=== PATIENT | male | born 1970 | race Caucasian/White ===

== ENCOUNTER 2021-01-26 08:34 | Inpatient (IN) | payer MEDICARE, OTHER ==
[~2021-01-26] VITALS: Ht 167 cm; Wt 109.8 kg
[2021-01-26] MEDS ORDERED: NS IV 1000 ML 1,000 ML ONE (09:29)
[2021-01-26] MEDS ORDERED: NITRO DRIP 25000 MCG/D5W 250 ML IV ONE (09:29)
[2021-01-26] MEDS ORDERED: HEParin 1000 UNIT/ML (10ML VIAL) FOR BOLUS ONE (09:29)
[2021-01-26] MEDS ORDERED: MIDAZOLAM 5 MG/5 ML (VERSED) VIAL ONE (09:29)
[2021-01-26] MEDS ORDERED: fentaNYL INJECTION 100 MCG/2 ML AMP ONE ×2 (09:29→10:55)
[2021-01-26] MEDS ORDERED: HEParin (CATH LAB) 2,000 ML IV ONE (09:29)
[2021-01-26] MEDS ORDERED: LIDOCAINE 1% INJ 20 ML 20 ML VIAL ONE (09:29)
--- NOTE | 2021-01-26 09:31 | Cardiac Procedure Note-CS/ASA ---
Pre-Procedure Note Pre-Op Procedure Note H&P Reviewed The H&P was reviewed, patient examined and no changes noted. Date H&P Reviewed: Jan 26, 2021 Time H&P Reviewed: 09:00 Conscious Sedation Pre-Proced Time 09:00 ASA Score 3 For ASA 3 and 4: Consider anesthesia and medical clearance. Also, for patients with a history of failed moderate sedation consider anesthesia. Airway Lungs Heart ASA score ASA 1: a normal healthy patient ASA 2: a patient with a mild systemic disease (mid diabetes, controlled hypertension, obesity x ASA 3: a patient with a severe systemic disease that limits activity (angina, COPD, prior Myocardial infarction) ASA 4: a patient with an incapacitating disease that is a constant threat to life (CHF, renal failure) ASA 5: a moribund patient not expected to survive 24 hrs. (ruptured aneurysm) ASA 6: a declared brain- patient whose organs are being harvested. For emergent operations, add the letter E after the classification Mallampati Classification Grade 3 Sedation Plan Analgesia, Amnesia, Plan communicated to team members, Discussed options with patient/fam, Discussed risks with patient/fam The patient is an appropriate candidate to undergo the planned procedure, sedation, and anesthesia. The patient immediately re-assessed prior to indication. MARIO SOLIS MD Jan 26, 2021 9:31 am
--- NOTE | 2021-01-26 09:35 | Cardiology History & Physical ---
HPI-Cardiology Cardiology Consultation Date of Consultation 01/26/21 Date of Admission Time Seen by Provider: 09:00 Indication: chest pain HPI 50 years old gentleman with history of diabetes mellitus, hypertension hyperlipidemia, started to have chest pain around 5 a.m. was seen at [facility] emergency room, he was noted to have ST elevation myocardial infarction, transferred for emergency cardiac catheterization to our institution, on arrival he was still having mild chest discomfort, had mild back pain. Mild shortness of breath. He is an active smoker, no previous cardiac history PMH-Cardiology Other PMHx Discussed below Social History Patient Social History Marrital Status: Employed/Student: employed Smoking: Current every day smoker Family Hx Other Noncontributory ROS-Cardiology Review of Systems General: No Chills, No Night Sweats, No Fatigue, No Malaise, No Appetite HEENT: No Head Aches, No Visual Changes, No Eye Pain, No Ear Pain, No Dysphasia, No Sinus Congestion, No Post Nasal Drip, No Sore Throat Pulmonary: Dyspnea; No Cough, No Pleuritic Chest Pain Cardiovascular: Chest Pain; No: Palpitations, Orthopnea, Paroxysmal Noc. Dyspnea, Edema, Lt Headedness Gastrointestinal: No: Nausea, Vomiting, Abdominal Pain, Diarrhea, Constipation, Melena, Hematochezia Genitourinary: No Dysuria, No Frequency, No Incontinence, No Hematuria, No Retention Musculoskeletal: back pain; No: neck pain, shoulder pain, arm pain, hand pain, leg pain, foot pain Neurological: No: Weakness, Numbness, Incoordination, Change in speech, Confus ion, Seizures Home Medications & Allergies Home Medication List Reviewed: Yes Exam-Cardiology Exam General Appearance: Alert, Oriented X3, Cooperative, No Acute Distress HEENT: Atraumatic, PERRLA Respiratory: Clear to Auscultation, Normal Air Movement Cardiovascular: Regular Rate, Normal S1, Normal S2, No Murmurs Abdominal: Normal Bowel Sounds, Soft, No Tenderness, No Hepatosplenomegaly, No Masses Extremities: No Clubbing, No Cyanosis, No Edema, Normal Pulses, No Tenderness/Swelling Skin: No Rashes, No Breakdown, No Significant Lesion Neuro: Normal Gait, Normal Speech, Strength at 5/5 X4 Ext, Normal Tone, Sensation Intact Psych/Mental Status: Mental Status NL, Mood NL Results Labs Labs Reviewed from [facility] A/P-Cardiology Admission Diagnosis Acute ST elevation myocardial infarction Coronary artery disease Hypertension Hyperlipidemia Admission Status: Inpatient Order (span 2 midnights) Reason for Inpatient Admission: Acute ST elevation myocardial infarction Assessment/Plan Acute ST elevation myocardial infarction the anterior wall, patient was brought for emergency cardiac catheterization, underwent stenting to the LAD with excellent results. Has moderate disease in the circumflex and right coronary artery. Start on aspirin and Plavix. Monitor tolerance and response Coronary artery disease, status post emergency stenting to the LAD using 2.5 x 18 mm Lorna stent expanded to 2.7 mm with excellent results, moderate disease in the circumflex and right coronary artery Hypertension, was borderline hypotensive after receiving nitroglycerin, recovered fairly quickly, I will start him on ARB and beta blockers Hyperlipidemia, starting Lipitor 80 mg daily Diabetes mellitus, has been on metformin, educated on holding metformin Tobaccoism, educated on smoking cessation Obesity, educated on weight loss MARIO SOLIS MD Jan 26, 2021 9:35 am
--- NOTE | 2021-01-26 09:41 | Cardiac Cath Report ---
Cardiac Cath Report Physician (s)/Ebd Teacher (s) Physician MARIO SOLIS MD Pre-Procedure Diagnosis Pre-Procedure Diagnosis: acute ST elevation myocardial infarction Post-Procedure Note Name of Procedure: Left heart catheterization Emergency stenting to the LAD Findings/Procedure Note PROCEDURE NOTE: 50 years old gentleman with history of diabetes mellitus, hypertension hyperlipidemia, admitted with acute ST elevation myocardial infarction in the anterior wall, proceeded with emergency cardiac catheterization possible PTCA. After explaining the procedure to the patient, all pros and cons were explained, all questions were answered. The patient signed the consent and then he was placed on the cardiac catheterization laboratory. Groin was prepped SL fashion local anesthesia was used. Sheath placed in the right femoral artery. [place] right and left catheter were used to access the coronary system. Pigtail was used to access the left ventricular cavity. Left ventriculogram was done Percutaneous intervention report Patient was given additional 5000 units of heparin, he received 4000 unit in [facility], [place] 3.5 guide was advanced to the left coronary system, BMW wire was advanced and parked distally, predilatation using 2.5 x 20 mm balloon, door to balloon time was 15 minutes. Carefully deployed Lorna 2.5 x 18 mm stent then intracoronary nitroglycerin was given, angiogram showed excellent results At the end of the procedure the sheath was removed. Closure device was deployed FINDINGS: Hemodynamics LV 100/9, end-diastolic pressure of 9 Aorta 98/57, mean of 35 ANATOMY: Left Main is free of obstructive disease Left Anterior Descending has proximal subtotal occlusion, balloon angioplasty then stent deployment using Lorna 2.5 x 18 mm expanded to 2.7 millimeter with excellent results, moderate disease distally Left Circumflex is moderate in size with moderate disease at the midportion nonobstructive disease Right Coronory Artery is small artery with [id number] disease of the midportion, dominant artery LV Gram was done showing normal left ventricular size, mild hypokinesia at the anterior wall, EF 50 percent CONCLUSION: 1. Acute ST elevation myocardial infarction in the anterior wall with emergency stenting, door to balloon time 15 minutes 2. Subtotal occlusion in the proximal LAD, successful deployment of Lorna 2.5 x 18 mm expanded to 2.7 mm with excellent results, moderate disease distally with coronary spasm induced by catheter resolved with nitroglycerin 3. Moderate disease in the circumflex artery, mild to moderate disease in the midright coronary artery 4. Normal left ventricular size, hypokinesia at the anterior wall, ejection fraction 50 percent DISCUSSION AND RECOMMENDATION: Will maximize medical therapy, monitor tolerance and response Anesthesia Type: Conscious Sedation Estimated blood loss (mL): 35 ml Contrast Amount: 170 ml Total Radiation Dose: 1192 mGy Post-Procedure Diagnosis Post-operative diagnosis: Acute ST elevation myocardial infarction Coronary artery disease Hypertension Hyperlipidemia MARIO SOLIS MD Jan 26, 2021 9:41 am
[2021-01-26] MEDS ORDERED: PATIENT MAY USE OWN MEDS, ALL PO SCH (09:45)
[2021-01-26] MEDS ORDERED: TIZA4TAB4 PO ×2 (10:26)
[2021-01-26] MEDS ORDERED: CLN.2T PO (10:26)
[2021-01-26] MEDS ORDERED: VITA200C60 PO (10:26)
[2021-01-26] MEDS ORDERED: LEVO75TA97 PO (10:26)
[2021-01-26] MEDS ORDERED: GLIM2TAB4 PO (10:26)
[2021-01-26] MEDS ORDERED: ESCI20TA39 PO (10:26)
[2021-01-26] MEDS ORDERED: DOXA2TAB2 PO (10:26)
[2021-01-26] MEDS ORDERED: HYDR-3924 PO (10:26)
[2021-01-26] MEDS ORDERED: LOSA100T57 PO (10:26)
[2021-01-26] MEDS ORDERED: METF-865 PO (10:26)
[2021-01-26] MEDS ORDERED: LOVA20TA2 PO (10:26)
[2021-01-26] MEDS: NS IV 1000 ML 1,000 ML IV SCH ×2 (11:11→15:57)
--- NOTE | 2021-01-26 12:00 | Consultation - Hospitalist ---
HPI History of Present Illness: HPI/Chief Complaint Pt is a 50yoCM with a PMH of HTN, HLD, COPD, tobacco abuse, NIDDMII and obesity who presented to outside ER with vomiting, dizziness, and chest discomfort, deep midsternal. He reports it radiated to both arms and he became sweaty with it. He was found to have a STEMI and was transferred emergently to or director of laboratory operations. I am consulted for medication management. He states he is a long standing diabetic and his BS normally run around 130-150s. His only complaint to me is mild shortness of breath and back discomfort from laying flat. He is supposed to be in inhalers for his COPD but has not been using them. He is also supposed to wear oxygen at home but is noncompliant as well. Source: patient Date Seen 01/26/21 Attending Physician Otto Brown MD PCP No,Local Physician Referring Physician Date of Admission Jan 26, 2021 at 10:59 Home Medications & Allergies Home Medications Reviewed patient Home Medication Reconciliation performed by pharmacy medication reconciliations fiberglass technician and/or nursing. Patients Allergies have been reviewed. Allergies Allergies Coded Allergies acetaminophen (Verified Allergy, Mild, 01/26/21) makes very "jumpy" aspirin (Verified Allergy, Mild, 01/26/21) makes very "jumpy" caffeine (Verified Allergy, Mild, 01/26/21) makes very "jumpy" Past Wwucyhn-Jerkzu-Owgyij Hx Past Med/Social Hx: Reviewed and Corrections made Patient Social History Marrital Status: Employed/Student: employed Smoking Status: Current Everyday Smoker Past Medical History Cardiac: High Cholesterol, Hypertension Endocrine: Diabetes, Non-Insulin dep Family History Reviewed Nursing Family Hx Review of Systems Constitutional: No chills, No fever EENTM: no symptoms reported Respiratory: cough, short of breath, wheezing Cardiovascular: see HPI, chest pain Gastrointestinal: see HPI Genitourinary: no symptoms reported Musculoskeletal: back pain Skin: no symptoms reported Psychiatric/Neurological: No Symptoms Reported Physical Exam Physical Exam Vital Signs Vital Signs - First Documented 01/26/21 09:52 Pulse 75 Resp 25 B/P (MAP) 123/78 (93) Pulse Ox 100 O2 Delivery Nasal Cannula O2 Flow Rate 4.00 Capillary Refill : Less Than 3 Seconds Height, Weight, BMI Height: '" Weight: lbs. oz. kg; 39.22 BMI Method: General Appearance: No Apparent Distress (though appears uncomfortable), WD/WN, Obese HEENT: PERRL/EOMI, Moist Mucous Membranes; No Scleral Icterus (L), No Scleral Icterus (R) Neck: Normal Inspection, Supple; No JVD Respiratory: No Accessory Muscle Use; No Rhonci; Wheezing (end expiratory), Other (on 4lpm) Cardiovascular: Regular Rate, Rhythm, No Murmur Gastrointestinal: Normal Bowel Sounds, Non Tender, Soft Neurologic/Psychiatric: Alert, Oriented x3, Normal Mood/Affect Skin: Normal Color, Warm/Dry Results Results/Procedures Labs Patient resulted labs reviewed. Assessment/Plan Assessment and Plan Assess & Plan/Chief Complaint STEMI HTN HLD Management per primary Cath this AM with intervention to LAD Continue ASA and Plavix Continue metoprolol Continue lipitor NIDDMII Hold metformin as just got contrast in cath SSI Hypothyroidism Continue home meds COPD with chronic hypoxi respiratory failue Tobacco abuse Recommended cessation Noncompliant with inhalers MAT protocol MARIA ESTHER RICHTER MD Jan 26, 2021 12:00
[2021-01-26 13:30] VITALS: BP 116/85
[2021-01-26] MEDS: fentaNYL INJECTION 100 MCG/2 ML AMP IVP PRN ×4 (13:31→23:51)
[2021-01-26] MEDS ORDERED: RT-ALBUTEROL/IPRATROPIUM 3 ML (DUONEB) VIAL INH PRN (13:45)
[2021-01-26] MEDS: RT-ALBUTEROL/IPRATROPIUM 3 ML (DUONEB) VIAL INH SCH ×2 (15:00→19:13)
[2021-01-26] MEDS: inSUlin ASPART (NovoLOG) 1 UNIT/0.01 ML (CHARGE PER UNIT) SC SCH ×2 (15:43→21:48)
[2021-01-26] MEDS ORDERED: NITROGLYCERIN 0.4 MG SL TABS BTL 25'S SL PRN (16:15)
[2021-01-26] MEDS: meTOprolol TARTRATE 25 MG (LOPRESSOR) TABLET PO SCH (20:00)
[2021-01-26] MEDS ORDERED: NICOTINE 21 MG (NICODERM) PATCH TD SCH (21:00)
[2021-01-27 04:12] LABS: HEMOGLOBIN 12.2 g/dL (13.3-17.7); MEAN PLATELET VOLUME 12.2 fL (9.0-12.2); WHITE BLOOD COUNT 9.2 10^3/uL (4.3-11.0)
[2021-01-27 04:40] LABS: ALANINE AMINOTRANSFERASE 59 U/L (0-55); ALBUMIN 3.6 GM/DL (3.2-4.5); ALKALINE PHOSPHATASE 64 U/L (40-136); BILIRUBIN,TOTAL 0.4 MG/DL (0.1-1.0); BUN/CREATININE RATIO 12; CALCIUM 8.7 MG/DL (8.5-10.1); CARBON DIOXIDE 22 MMOL/L (21-32); CHLORIDE 103 MMOL/L (98-107); CHOLESTEROL 143 MG/DL (< 200); CREATININE SERUM 0.74 MG/DL (0.60-1.30); GFR ESTIMATED > 60; GLUCOSE 122 MG/DL (70-105); HDL CHOLESTEROL 35 MG/DL (40-60); SODIUM 135 MMOL/L (135-145); TOTAL PROTEIN 6.5 GM/DL (6.4-8.2); TRIGLYCERIDES 193 MG/DL (<150); VLDL CHOLESTEROL 39 MG/DL (5-40)
[2021-01-27] MEDS: NS IV 1000 ML 1,000 ML IV SCH (06:24)
[2021-01-27] MEDS: inSUlin ASPART (NovoLOG) 1 UNIT/0.01 ML (CHARGE PER UNIT) SC SCH (06:24)
[2021-01-27] MEDS ORDERED: LEVOTHYROXINE 75 MCG (LEVOTHROID) TABLET PO SCH (06:30)
[2021-01-27] MEDS: RT-ALBUTEROL/IPRATROPIUM 3 ML (DUONEB) VIAL INH SCH (07:27)
[2021-01-27] MEDS: meTOprolol TARTRATE 25 MG (LOPRESSOR) TABLET PO SCH (08:12)
[2021-01-27] MEDS: fentaNYL INJECTION 100 MCG/2 ML AMP IVP PRN (08:17)
[2021-01-27] MEDS ORDERED: PANTOPRAZOLE 40 MG (PROTONIX) TAB PO SCH (09:00)
[2021-01-27] MEDS ORDERED: LOSARTAN 25 MG (COZAAR) TAB PO SCH (09:00)
[2021-01-27] MEDS ORDERED: ASPIRIN E.C. 81 MG (ECOTRIN) TAB PO SCH (09:00)
[2021-01-27] MEDS ORDERED: CLOPIDOGREL 75 MG (PLAVIX) TABLET PO SCH (09:00)
[2021-01-27] MEDS ORDERED: ATOR80TA76 PO (09:19)
[2021-01-27] MEDS ORDERED: METO-351 PO (09:19)
[2021-01-27] MEDS ORDERED: NICO1PAT34 TD (09:19)
[2021-01-27] MEDS ORDERED: CLOP75TA28 PO (09:19)
[2021-01-27] MEDS ORDERED: PANT40TA52 PO (09:19)
[2021-01-27] MEDS ORDERED: ASPI-1238 PO (09:19)
--- NOTE | 2021-01-27 09:20 | Discharge Inst-Post CATH ---
Discharge Inst-CATH/EP Problems Reviewed?: Yes Post Cardiac Cath/EP D/C Inst Follow Up/Plan Hold metformin for [address] SOLIS's office in 2-4 weeks <b>CARDIAC CATH/EP PROCEDURE DISCHARGE INSTRUCTIONS</b> ACTIVITY * Go Home directly and rest. * Limit activity of the leg (or wrist if it was used) for 7 days including aerobics, swimming, jogging, bicycling, etc. * Restrict stair-climbing for 7 days if possible, if not, climb up with your non-cath leg, then bring together on the same step. * Avoid lifting, pushing, pulling or excessive movement of the affected extremity for 7 days. * Customary sexual activity may be resumed after 2 days-use caution not to use a position that strains or causes pain to the affected extremity. * No driving for 24 hours. * NO SMOKING. * Avoid straining for bowel movements for 7 days. * Gentle walking on level ground is allowed. * Returning to work will depend on the type of procedure and the results. Your doctor will discuss this with you. CALL YOUR DOCTOR FOR ANY OF THE FOLLOWING: *If bleeding from the puncture site occurs- Apply gentle pressure to site with clean cloth and call your doctor or EMS. * If a knot or lump forms under the skin, increases in size, or causes pain. * If bruising appears to be worsening or moving further down your leg instead of disappearing. * Temperature above 101 F. CARE OF YOUR GROIN INCISION; * Bruising or purple discoloration of the skin near the puncture site is common. * You may shower only, no bathtub bathing for 5 days. Be careful to avoid slipping as your leg may feel stiff. * If a closure device was used on your femoral artery, please see the attached guide regarding care of the device and your leg. * Leave dressing on FOR 24 hours. CARE OF YOUR WRIST INCISION; * Bruising or purple discoloration of the skin near the puncture site is common. * You may shower. * DO NOT submerge wrist. * Leave dressing on FOR 24 hours. MARIO SOLIS MD Jan 27, 2021 9:20 am
--- NOTE | 2021-01-27 09:24 | Cardiology Discharge Summary ---
Discharge Summary Hospital Course Problems Reviewed?: Yes Hospital Course Date of Admission: Jan 26, 2021 at 10:59 am Admission Diagnosis : Family Physician/Provider: No,Local Physician Date of Discharge: 01/27/21 Discharge Diagnosis: [ Acute ST elevation myocardial infarction Coronary artery disease Hypertension Hyperlipidemia] Hospital Course: [ Acute ST elevation myocardial infarction the anterior wall, underwent stenting to the LAD with excellent results. Has moderate disease in the circumflex and right coronary artery. Start on aspirin and Plavix. Monitor tolerance and response Coronary artery disease, status post emergency stenting to the LAD using 2.5 x 18 mm Lorna stent expanded to 2.7 mm with excellent results, moderate disease in the circumflex and right coronary artery Congestive heart failure, acute left ventricular systolic dysfunction, ischemic cardiomyopathy, anterior wall, anteroapex, apical and anterolateral hypo-kinesia to akinesia. Ejection fraction 40-45 percent. Started on beta blockers and continue on losartan 100 mg daily Hypertension, was borderline hypotensive after receiving nitroglycerin, recovered fairly quickly, I will start him on ARB and beta blockers, discontinue hydralazine and clonidine Hyperlipidemia, starting Lipitor 80 mg daily, discontinue lovastatin Diabetes mellitus, has been on metformin, educated on holding metformin Hypothyroidism, restart levothyroxine Tobaccoism, educated on smoking cessation Obesity, educated on weight loss] Labs and Pending Lab Test: Laboratory Tests 01/26/21 10:27: Glucometer 147H 01/26/21 15:15: Glucometer 94 01/26/21 19:48: Glucometer 176H 01/27/21 03:45: White Blood Count 9.2, Red Blood Count 3.50L, Hemoglobin 12.2L, Hematocrit 36L, Mean Corpuscular Volume 102H, Mean Corpuscular Hemoglobin 35H, Mean Corpuscular Hemoglobin Concent 34, Red Cell Distribution Width 12.6, Platelet Count 139, Mean Platelet Volume 12.2, Sodium Level 135, Potassium Level 4.0, Chloride Level 103, Carbon Dioxide Level 22, Anion Gap 10, Blood Urea Nitrogen 9, Creatinine 0.74, Estimat Glomerular Filtration Rate > 60, BUN/Creatinine Ratio 12, Glucose Level 122H, Calcium Level 8.7, Corrected Calcium 9.0, Total Bilirubin 0.4, Aspartate Amino Transf (AST/SGOT) 288H, Alanine Aminotransferase (ALT/SGPT) 59H, Alkaline Phosphatase 64, Troponin I 103.205*H, Total Protein 6.5, Albumin 3.6, Triglycerides Level 193H, Cholesterol Level 143, LDL Cholesterol Direct 81, VLDL Cholesterol 39, HDL Cholesterol 35L Microbiology 01/26/21 MRSA Screen - Final, Complete MRSA not isolated Home Meds Active Reported Hydralazine HCl 50 Mg Tablet 50 Mg PO TID 1/2 tab Lovastatin 20 Mg Tablet 20 Mg PO HS Tizanidine HCl 4 Mg Tablet 4 Mg PO HS Vitamin E (Vitamin E (Dl,Tocopheryl Acet)) 200 Unit Capsule 180 Mg PO DAILY Glimepiride 2 Mg Tablet 2 Mg PO DAILY Metformin HCl ER (Metformin HCl) 500 Mg Tab.er.24h 500 Mg PO DAILY Clonidine HCl 0.2 Mg Tablet 0.2 Mg PO BID Escitalopram Oxalate 20 Mg Tablet 20 Mg PO BID Losartan Potassium 100 Mg Tablet 100 Mg PO DAILY Tizanidine HCl 4 Mg Tablet 4 Mg PO TID 1/2 tab Doxazosin Mesylate 2 Mg Tablet 2 Mg PO HS Euthyrox (Levothyroxine Sodium) 75 Mcg Tablet 75 Mcg PO DAILY Assessment/Pt DC Instructions Hold metformin for [address] SOLIS's office Discharge Physical Examination Allergies: Coded Allergies: acetaminophen (Verified Allergy, Mild, 01/26/21) makes very "jumpy" aspirin (Verified Allergy, Mild, 01/26/21) makes very "jumpy" caffeine (Verified Allergy, Mild, 01/26/21) makes very "jumpy" General Appearance: No Apparent Distress, WD/WN HEENT: PERRL/EOMI, TMs Normal, Normal ENT Inspection Respiratory: Chest Non Tender, Lungs Clear, Normal Breath Sounds, No Accessory Muscle Use, No Respiratory Distress Cardiovascular: Regular Rate, Rhythm, No Edema, No Gallop, No JVD, Normal Peripheral Pulses Gastrointestinal: Normal Bowel Sounds, No Organomegaly, No Pulsatile Mass, Non Tender, Soft Extremity: Normal Capillary Refill, Normal Inspection, Normal Range of Motion, Non Tender, No Calf Tenderness Skin: Normal Color, Warm/Dry Neurologic/Psychiatric: Alert, Oriented x3, No Motor/Sensory Deficits, Normal Mood/Affect, oim architect II-XII Norm as Tested MARIO SOLIS MD Jan 27, 2021 9:24 am
[2021-01-27 10:01] VITALS: BP 105/69
[2021-01-27] MEDS ORDERED: NICOTINE PATCH REMOVAL TP SCH (21:00)
== END 2021-01-27 10:09 | disposition home or self-care (01) | DRG 246 ==
LOC: CATH 08:34 → ICU 09:52 → CATH 10:59 → ICU 10:59
PROVIDERS: ADMIT Internal Medicine Cardiovascular Disease; ATTEND Internal Medicine Cardiovascular Disease
PROC: 027034Z Dilation of Coronary Artery, One Artery with Drug-eluting Intraluminal Device, Percutaneous Approach (ICD-10-PCS; principal; 2021-01-26)
PROC: 4A023N7 Measurement of Cardiac Sampling and Pressure, Left Heart, Percutaneous Approach (ICD-10-PCS; 2021-01-26)
PROC: B2111ZZ Fluoroscopy of Multiple Coronary Arteries using Low Osmolar Contrast (ICD-10-PCS; 2021-01-26)
PROC: B2151ZZ Fluoroscopy of Left Heart using Low Osmolar Contrast (ICD-10-PCS; 2021-01-26)
DX: I21.09 ST elevation (STEMI) myocardial infarction involving other coronary artery of anterior wall (principal); I50.21 Acute systolic (congestive) heart failure; J96.11 Chronic respiratory failure with hypoxia; I25.10 Atherosclerotic heart disease of native coronary artery without angina pectoris; E78.5 Hyperlipidemia, unspecified; E11.9 Type 2 diabetes mellitus without complications; F17.210 Nicotine dependence, cigarettes, uncomplicated; E66.9 Obesity, unspecified; E03.9 Hypothyroidism, unspecified; I25.5 Ischemic cardiomyopathy; I95.2 Hypotension due to drugs; T46.3X5A Adverse effect of coronary vasodilators, initial encounter; I11.0 Hypertensive heart disease with heart failure; J44.9 Chronic obstructive pulmonary disease, unspecified; Z95.5 Presence of coronary angioplasty implant and graft; Z68.39 Body mass index [BMI] 39.0-39.9, adult; Z88.6 Allergy status to analgesic agent; Z88.8 Allergy status to other drugs, medicaments and biological substances
CPT/HCPCS: 36415; 80053; 80061; 82962; 84484; 85027; 87081; 93005; 93306; 93458; 94640

== ENCOUNTER → 2021-02-21 | Outpatient (CLI) | payer MEDICARE ==
[~2021-02-21] MED LIST: ASPI-1238 PO; ATOR80TA76 PO; CLN.2T PO; CLOP75TA28 PO; DOXA2TAB2 PO; ESCI20TA39 PO; GLIM2TAB4 PO; HYDR-3924 PO; LEVO75TA97 PO; LOSA100T57 PO; LOVA20TA2 PO; METF-865 PO; METO-351 PO; NICO1PAT34 TD; PANT40TA52 PO; TIZA4TAB4 PO; VITA200C60 PO
== END ==
LOC: CARD 09:27
PROVIDERS: ATTEND Physician Assistant
DX: I11.9 Hypertensive heart disease without heart failure (principal); I34.0 Nonrheumatic mitral (valve) insufficiency
CPT/HCPCS: 93306